=== PATIENT | female | born 1970 | race Two or more races ===

== ENCOUNTER 2018-07-19 20:23 | Emergency (ER) | payer SELFPAY ==
[~2018-07-19] VITALS: Ht 152.4 cm; Wt 65.4 kg
[2018-07-20] MEDS ORDERED: IBUPROFEN 600MG TABLET PO ONE
[2018-07-20 01:28] VITALS: BP 128/75
== END 2018-07-20 01:28 | disposition home or self-care (01) ==
LOC: ER 20:23
DX: S90.02XA Contusion of left ankle, initial encounter (principal); S90.32XA Contusion of left foot, initial encounter; X50.1XXA Overexertion from prolonged static or awkward postures, initial encounter; Y93.01 Activity, walking, marching and hiking; Y92.89 Other specified places as the place of occurrence of the external cause; Y99.8 Other external cause status; Z87.442 Personal history of urinary calculi; Z88.1 Allergy status to other antibiotic agents
CPT/HCPCS: 73610; 73630; 99284